=== PATIENT | male | born 1975 | race African-American/Black ===

== ENCOUNTER 2017-02-18 17:34 | Emergency (ER) | payer SELFPAY ==
--- NOTE | 2017-02-18 18:09 | RAD ---
LEFT SHOULDER THREE VIEWS: 02/18/17 HISTORY: Injury. Left shoulder pain. FINDINGS/IMPRESSION: No fracture or dislocation or bony destruction is identified. POS: [facility]
[2017-02-18] MEDS ORDERED: Ketorolac Tromethamine 30 MG/ML VIAL ONE (18:47)
--- NOTE | 2017-02-18 18:55 | CT ---
CT CERVICAL SPINE WITH CORONAL AND SAGITTAL REFORMATIONS: 02/18/17 HISTORY: Trauma. Neck pain. FINDINGS/IMPRESSION: Cervical lordosis is maintained. No acute fracture or subluxation is identified. POS: [facility]
[2017-02-18] MEDS ORDERED: Cyclobenzaprine 10 MG TAB ONE (19:15)
== END 2017-02-18 19:29 | disposition home or self-care (01) ==
LOC: ERS 17:34
DX: S16.1XXA Strain of muscle, fascia and tendon at neck level, initial encounter (principal); S40.012A Contusion of left shoulder, initial encounter; J45.909 Unspecified asthma, uncomplicated; Z79.899 Other long term (current) drug therapy; V89.2XXA Person injured in unspecified motor-vehicle accident, traffic, initial encounter
CPT/HCPCS: 72125; 96372; J1885

== ENCOUNTER 2017-06-21 00:54 | Emergency (ER) | payer OTHER, SELFPAY | END 2017-06-21 01:29 | LOC: ERS 00:54 | DX: Z02.9 Encounter for administrative examinations, unspecified (principal) | CPT/HCPCS: 99283 ==

== ENCOUNTER 2018-11-27 06:49 | Emergency (ER) | payer OTHER, SELFPAY ==
[2018-11-27] MEDS ORDERED: Bupivacaine 0.5% 10 ML VIAL ONE (07:56)
== END 2018-11-27 08:45 | disposition home or self-care (01) ==
LOC: ERS 06:49 → EEVIPCON 06:49 → ERS 08:45
DX: K02.9 Dental caries, unspecified (principal)
CPT/HCPCS: 64400; J3490